=== PATIENT | female | born 1945 | race Caucasian/White ===

== ENCOUNTER → 2017-08-16 | Outpatient (CLI) | payer MEDICARE, MEDICAID ==
[~2017-08-16] MED LIST: AMIO200T PO; ASPI325T80 PO; BUPR150T6 PO; BUTA-5 PO; CARI350T14 PO; DILT30TA33 PO; DULO60CA7 PO; ENOX150S5 SQ; FLUC200T PO; HYDR-3307 PO; LISI-170 PO; LISI1TAB7 PO; LOVA20TA2 PO; METH10OR PO; METO50TA82 PO; OMEP40CA6 PO; OXYC10TA6 PO; OXYC5SOL8 PO; POTA20PI5 PO; POTA20TA PO; RIVA10TA PO; WARF5TAB PO; [UNRECOGNIZED DRUG - OTHER]
== END | disposition home or self-care (01) ==
LOC: CVU 13:13
PROVIDERS: ATTEND Internal Medicine Cardiovascular Disease
DX: I35.1 Nonrheumatic aortic (valve) insufficiency (principal); I48.0 Paroxysmal atrial fibrillation; I47.1 Supraventricular tachycardia; E66.9 Obesity, unspecified
CPT/HCPCS: 93306

== ENCOUNTER → 2018-12-03 | Outpatient (CLI) | payer MEDICARE, MEDICAID ==
[~2018-12-03] MED LIST changes: +REGADENOSON 0.4 MG/5 ML SYRINGE ONE; -RIVA10TA PO; +RIVA10TA2 PO
== END | disposition home or self-care (01) ==
LOC: CFH 11:39
PROVIDERS: ATTEND Internal Medicine Cardiovascular Disease
DX: I65.23 Occlusion and stenosis of bilateral carotid arteries (principal); I35.1 Nonrheumatic aortic (valve) insufficiency; I10 Essential (primary) hypertension; R60.9 Edema, unspecified; I48.91 Unspecified atrial fibrillation
CPT/HCPCS: 78452; 93017; A9502; J2785

== ENCOUNTER 2018-12-21 13:22 | Outpatient (CLI) | payer MEDICARE, MEDICAID | END 2018-12-21 23:59 | disposition home or self-care (01) | LOC: CVU 13:22 | PROVIDERS: ATTEND Internal Medicine Cardiovascular Disease | DX: I08.3 Combined rheumatic disorders of mitral, aortic and tricuspid valves (principal); I65.23 Occlusion and stenosis of bilateral carotid arteries; R60.0 Localized edema; I10 Essential (primary) hypertension | CPT/HCPCS: 93306; 93880 ==

== ENCOUNTER → 2018-12-21 | Outpatient (CLI) | payer MEDICARE, MEDICAID ==
[~2018-12-21] MED LIST changes: -REGADENOSON 0.4 MG/5 ML SYRINGE ONE
[2018-12-21 16:12] LABS: BASOPHILS # (AUTO) 0.01 x10^3/uL (0-0.1); BASOPHILS % (AUTO) 0 % (0-1); EOSINOPHILS # (AUTO) 0.16 x10^3/uL (0-0.4); EOSINOPHILS % (AUTO) 4 % (1-7); LYMPHOCYTES % (AUTO) 15 % (22-44); MD NO; MEAN CORPUSCULAR HEMOGLOBIN 31.9 pg (27.0-34.8); MEAN CORPUSCULAR HGB CONC 33.2 g/dL (32.4-35.8); MEAN PLATELET VOLUME 8.8 fL (7.4-10.4); MONOCYTES # (AUTO) 0.34 x10^3/uL (0.2-0.8); MONOCYTES % (AUTO) 8 % (2-9); NEUTROPHILS # (AUTO) 2.93 x10^3/uL (1.8-6.8); NEUTROPHILS % (AUTO) 72 % (42-75); PLATELET COUNT 155 x10^3/uL (130-400); RED BLOOD COUNT 4.64 x10^6/uL (3.82-5.3); RED CELL DISTRIBUTION WIDTH 15.4 % (9.6-15.2)
[2018-12-21 16:16] LABS: ALANINE AMINOTRANSFERASE 17 U/L (12-78); ALBUMIN 3.7 g/dL (3.4-5.0); ANION GAP 3 mmol/L (5-15); CALCIUM 8.6 mg/dL (8.5-10.1); CHLORIDE 104 mmol/L (98-107); CHOLESTEROL, TOTAL 204 mg/dL (140-239); CREATININE 1.11 mg/dL (0.55-1.02); PROTHROMBIN TIME 20.4 Seconds (9.6-11.5)
[2018-12-21 16:22] LABS: HEMOGLOBIN A1C 5.3 % (4.2-6.3)
[2018-12-21 16:42] LABS: ALKALINE PHOSPHATASE 84 U/L (45-117); BILIRUBIN,TOTAL 0.7 mg/dL (0.2-1.0); CHOL/HDL RATIO 4.9; HDL CHOL % 21 % (28-40); HDL CHOLESTEROL (DIRECT) 42 mg/dL (40-60); LDL CHOLESTEROL,CALCULATED 129 mg/dL (54-169); LDL/HDL RATIO 3.1 (0.5-3.0); TOTAL PROTEIN 7.2 g/dL (6.4-8.2); TRIGLYCERIDES 167 mg/dL (50-200); VLDL CHOLESTEROL 33 mg/dL (0-25)
== END | disposition home or self-care (01) ==
LOC: LAB 13:30
PROVIDERS: ATTEND Internal Medicine Cardiovascular Disease
DX: E03.9 Hypothyroidism, unspecified (principal); M54.5 Low back pain; I48.2 Chronic atrial fibrillation; G89.29 Other chronic pain
CPT/HCPCS: 36415; 80053; 80061; 82306; 82607; 83036; 85025; 85610

== ENCOUNTER 2021-04-06 09:39 | Outpatient (CLI) | payer MEDICARE, MEDICAID ==
[~2021-04-06 09:39] MED LIST changes: +BUPR150T22 PO; -BUPR150T6 PO; +CARI-389 PO; -CARI350T14 PO; +HYDR-3248 PO; -HYDR-3307 PO; +LISI1TAB20 PO; -LISI1TAB7 PO; -OMEP40CA6 PO; +OMEP40CA8 PO; -WARF5TAB PO; +WARF5TAB2 PO
== END 2021-04-06 23:59 | disposition home or self-care (01) ==
LOC: CFH 09:39
PROVIDERS: ATTEND Internal Medicine Cardiovascular Disease
DX: I06.1 Rheumatic aortic insufficiency (principal); J44.9 Chronic obstructive pulmonary disease, unspecified
CPT/HCPCS: 93306